=== PATIENT | male | born 1995 | race Caucasian/White ===

== ENCOUNTER → 2024-07-29 11:00 | Outpatient (REF) | payer OTHER, SELFPAY | LOC: CLAB 11:00 | PROVIDERS: ATTENDING PHYSICIAN Physician Assistant | DX: H60.331 Swimmer's ear, right ear (principal) | CPT/HCPCS: 87070; 87077 ==

== ENCOUNTER → 2025-01-29 06:50 | Outpatient (REF) | payer OTHER, SELFPAY | LOC: RAD 06:50 | PROVIDERS: ATTENDING PHYSICIAN Family Medicine; FAMILY PHYSICIAN Nurse Practitioner | DX: R10.11 Right upper quadrant pain (principal) | CPT/HCPCS: 76700 ==

== ENCOUNTER → 2025-04-02 17:22 | Outpatient (REF) | payer OTHER, SELFPAY | LOC: RAD 17:22 | PROVIDERS: ATTENDING PHYSICIAN Family Medicine | DX: R10.11 Right upper quadrant pain (principal) | CPT/HCPCS: 74177; Q9967 ==